=== PATIENT | male | born 1980 | race Caucasian/White ===

== ENCOUNTER 2017-09-03 22:58 | Inpatient (IN) | payer OTHER ==
[~2017-09-03] VITALS: Ht 175.3 cm; Wt 72.6 kg
== END 2017-09-06 23:43 | disposition home or self-care (01) | DRG 603 ==
LOC: ER 22:58 → MEDJ 09-04 09:51
PROC: BP3 Imaging, Non-Axial Upper Bones, Magnetic Resonance Imaging (MRI) (ICD-10-PCS; principal; 2017-09-04)
DX: L03.113 Cellulitis of right upper limb (principal); M71.121 Other infective bursitis, right elbow
CPT/HCPCS: 73218